=== PATIENT | female | born 1995 | race Caucasian/White ===

== ENCOUNTER 2022-01-12 00:55 | Emergency (ER) | payer MEDICAID, SELFPAY ==
[2022-01-12 00:56] VITALS: BP 117/79; PULSE 95; RESP 18; TEMP 36.4; O2SAT 99; BMI 41.8
[2022-01-12 01:39] VITALS: BP 104/70; BP 107/77; BP 99/63; PULSE 73; PULSE 90; PULSE 97
[2022-01-12 01:40] LABS: Absolute Lymphocyte Count 1.37 X10^3/uL (0.83-4.51); Absolute Neutrophil Count 3.8 X10^3/uL (2.0-7.7); Basophil# 0.01 X10^3/uL; Basophil% 0.2 % (0-1); Eosinophil# 0.03 X10^3/uL; Eosinophils% 0.5 % (0-5); Hematocrit 37.2 % (37-47); Hemoglobin 12.1 g/dL (12.0-15.0); Lymphocyte # 1.37 X10^3/ul (0.83-4.51); Lymphocyte % 23.5 % (19-41); Mean Corp Hgb Conc 32.5 g/dL (32-36); Mean Corpuscular Hgb 30.3 pg (27.0-32.0); Mean Platelet Vol. 10.4 fl (6.2-12.0); Monocyte# 0.58 X10^3/uL; Monocyte% 9.9 % (0-10); NRBC Flagged by Analyzer 0 % (0-5); Neutrophil # 3.83 X10^3/uL (2.7-7.7); Neutrophil % 65.7 % (47-70); Platelet Count 235 K/mm3 (150-450); RBC Distribution Width CV 15.3 % (11.6-14.6); RBC Distribution Width SD 52.9 fl (35.1-43.9); White Blood Count 5.8 K/mm3 (4.4-11.0)
[2022-01-12 01:49] LABS: International Normalized Ratio 1.2; Prothrombin Time (Protime)PT. 14.4 SECONDS (11.7-14.9)
--- NOTE | 2022-01-12 02:21 | EX.ED.DYSGE1 ---
HPI History of Present Illness Chief Complaint: Nosebleed Narrative Narrative: Patient is a 26-year-old female with past medical history of depression. She states she was at work this evening when she noticed she was having intermittent bleeding from the right and left nostril. She denies any direct trauma prior to the bleeding starting and she denies any history of bleeding disorder or blood thinner use. She states during the last episode of bleeding she felt lightheaded and dizzy as though she was going to pass out and secondary to this she was advised to come to the hospital for evaluation. [facility] Medical History Seizure Home Medications escitalopram oxalate 10 mg tablet 1 tab PO DAILY 01/12/22 [History Last Taken Unknown] Allergy/AdvReac Type Severity Reaction Status Date / Time amoxicillin Allergy Anaphylaxis Verified 01/12/22 00:59 Penicillins Allergy Anaphylaxis Verified 01/12/22 00:59 shrimp Allergy Anaphylaxis Verified 01/12/22 00:59 Social History Smoking Status: Never smoker [facility] ED Constitutional Constitutional ED: Reports sweats; Denies chills or fever(s) ENT ENT ED: Reports other Details: Positive nosebleed ; Denies sore throat Cardiovascular Cardiovascular: Denies chest pain Respiratory/Chest Respiratory/Chest: Denies cough or dyspnea Gastrointestinal Gastrointestinal: Denies abdominal pain, diarrhea, nausea or vomiting Genitourinary Genitourinary ED: Denies dysuria Musculoskeletal Musculoskeletal: Denies myalgias Integumentary Denies rash Neurologic Neurologic: Reports other Details: Positive dizziness ; Denies headache(s) Hematologic/Lymphatic Hematologic/Lymphatic: Denies easy bleeding or easy bruising EXAM Physical Exam Const Vital Signs: 01/12/22 00:56 01/12/22 01:39 Temperature 97.6 F L Temperature Source Temporal Pulse Rate 95 Pulse Rate [Lying] 73 Pulse Rate [Sitting (for 1 minute prior to obtaining)] 90 Pulse Rate [Standing (for 1 minute prior to obtaining)] 97 Respiratory Rate 18 Blood Pressure 117/79 Blood Pressure [Lying] 99/63 Blood Pressure [Sitting (for 1 minute prior to obtaining)] 104/70 Blood Pressure [Standing (for 1 minute prior to obtaining)] 107/77 Blood Pressure Mean 91 Blood Pressure Mean [Lying] 75 Blood Pressure Mean [Sitting (for 1 minute prior to obtaining)] 81 Blood Pressure Mean [Standing (for 1 minute prior to obtaining)] 87 Pulse Ox 99 Oxygen Delivery Method Room Air Positive well nourished and well developed General Appearance ED: well developed HEENT Reports moist mucous membranes HEENT Narrative: Patient has a friable nasal septum greater on the right. There is scabbing present bilaterally consistent with intermittent bleeds but no active bleed. No dried blood or active bleeding noted in the posterior pharynx Eyes PERRL and EOMs intact bilaterally Eyes Narrative: No subconjunctival pallor noted Neck supple Resp normal respiratory effort and clear to auscultation bilaterally Cardio regular rate and regular rhythm Extremity normal to inspection Neuro oriented x3 and CN's II-XII intact bilaterally Sensorium / Orientation: alert Psych mental status grossly normal Skin no rashes or lesions noted MDM MDM MDM Narrative Medical decision making narrative: Patient presented to the ER with stable vitals and an exam that demonstrated spontaneous resolution of her nosebleed. We discussed that with stable vitals but chance for having a low blood volume is unlikely the patient had concerned about this because of her near syncopal event and therefore basic labs were ordered. H&H is stable bleeding times are normal and her orthostatic vital signs are negative. Her history of a near syncopal event while having a nosebleed is most consistent with a vasovagal reaction. At this time she continues to have no spontaneous bleeding her vitals remained stable and with negative work-up she is safe for discharge Lab Data Attestation: I reviewed the patient's lab results. Labs: Laboratory Results - last 24 hr 01/12/22 01/12/22 01:35 01:35 WBC 5.8 RBC 4.00 L Hgb 12.1 Hct 37.2 MCV 93.0 MCH 30.3 MCHC 32.5 RDW Std Deviation 52.9 H RDW Coeff of [place] 15.3 H Plt Count 235 MPV 10.4 Immature Gran % (Auto) 0.200 Neut % (Auto) 65.7 Lymph % (Auto) 23.5 [place] % (Auto) 9.9 Eos % (Auto) 0.5 Baso % (Auto) 0.2 Absolute Neuts (auto) 3.8 Absolute Lymphs (auto) 1.37 Nucleated RBC % 0 PT 14.4 INR 1.2 APTT 36.0 Discharge Plan Triage Chief Complaint: Nosebleed ED Provider: Asif Johnson Dx/Rx/DC Orders Clinical Impression: Anterior epistaxis Instructions: ED Epistaxis (Adult) Prescriptions: No Action escitalopram oxalate 10 mg tablet 1 tab PO DAILY Primary Care Provider: Sánchez Ferris Referrals: Sánchez Ferris MD [Primary Care Provider] - Disposition Disposition: Home, Self Care Discharge Date/Time: 01/12/22 02:42
== END 2022-01-12 02:42 | disposition home or self-care (01) ==
PROVIDERS: Emergency Provider Emergency Medicine; PCP Family Medicine; Visit Provider Emergency Medicine
DX: R04.0 Epistaxis (principal)
CPT/HCPCS: 85025; 85610; 85730; 99283

== ENCOUNTER 2024-09-11 17:10 | Emergency (ER) | payer SELFPAY ==
[2024-09-11 17:11] VITALS: BP 139/100; PULSE 87; RESP 20; TEMP 36.6; O2SAT 97; BMI 47.0
--- NOTE | 2024-09-11 17:31 | ED.VIS.FEGU ---
HPI HPI - Female History of Present Illness Chief Complaint: Female C/O Pain Pain: Positive for Pelvic Pain Onset: Today Context: Gradual Onset Timing: Continuous Quality: Positive for Sharp and - (Pressure) Location: LLQ Worsened by: - (Nothing) Relieved by: - (Nothing) Associated Symptoms Associated Symptoms: Positive for Frequency; Negative for Dysuria or Hematuria Narrative Narrative: Patient presents with left lower abdominal pain that radiates into her pelvis and vaginal area. Patient states this began today. Patient states she has had some intermittent discomfort over the past few weeks. Patient states her pain is worse today. Patient admits to some nausea but denies any vomiting. Patient states she feels dizzy and disoriented. Patient states nothing makes her symptoms better and nothing makes it worse. Patient denies any abnormal vaginal bleeding or discharge. Patient denies any fevers but admits to some subjective chills. Patient admits to some urinary frequency but denies any dysuria or hematuria. PFSH PFS Medical History Seizure Home Medications ?Medication ?Instructions ?Recorded ?Last Taken ?Type escitalopram oxalate 10 mg tablet 1 tab PO DAILY 01/12/22 Unknown History Allergy/AdvReac Type Severity Reaction Status Date / Time amoxicillin Allergy Anaphylaxis Verified 09/11/24 17:11 Penicillins Allergy Anaphylaxis Verified 09/11/24 17:11 shrimp Allergy Anaphylaxis Verified 09/11/24 17:11 Surgical History no surgical history no surgical history Social History Smoking Status: Never smoker ROS ROS ED Constitutional Constitutional ED: Reports chills and subjective; Denies fever(s) Eyes Eyes: Denies blurry vision or change in vision ENT ENT ED: Denies rhinorrhea or sore throat Cardiovascular Cardiovascular: Denies chest pain or palpitations Respiratory/Chest Respiratory/Chest: Denies cough or dyspnea Gastrointestinal Gastrointestinal: Reports nausea; Denies vomiting Genitourinary Genitourinary ED: Reports urinary frequency; Denies dysuria or hematuria Musculoskeletal Musculoskeletal: Reports back pain and neck pain Integumentary Denies abscess or rash Neurologic Neurologic: Reports headache(s); Denies weakness Allergic/Immunologic Allergic/Immunologic ED: Denies mouth swelling or urticaria EXAM Physical Exam Const Vital Signs: 09/11/24 17:11 09/11/24 19:10 Temperature 97.9 F Temperature Source Temporal Pulse Rate 87 81 Respiratory Rate 20 H 14 Blood Pressure 139/100 H Blood Pressure Mean 113 Pulse Ox 97 97 Oxygen Delivery Method Room Air Room Air Positive well nourished and well developed Constitutional Narrative: BMI is 47.0 General Appearance ED: well developed and NAD HEENT Reports moist mucous membranes Neck supple and no JVD Resp normal respiratory effort and clear to auscultation bilaterally Cardio regular rate and regular rhythm GI soft to palpation and non-distended Palpation: tender LLQ; Negative for guarding Neuro oriented x3, CN's II-XII intact bilaterally and no sensory deficits noted Sensorium / Orientation: alert Motor Exam: strength 5/5 throughout Psych mental status grossly normal MDM MDM MDM Narrative Medical decision making narrative: Differential diagnosis includes urinary tract infection, ureteral calculus, ovarian cyst, diverticulitis, pyelonephritis, ectopic , and electrolyte abnormality. CT scan of the abdomen and pelvis will be obtained to assess for ureteral calculus, ovarian cyst, and diverticulitis. CBC will be obtained to assess for leukocytosis or anemia. Basic metabolic profile will be obtained to assess for electrolyte abnormality and renal function. Urinalysis will be obtained to assess for urinary tract infection and hematuria. Serum hCG will be obtained to assess for . Lab Data Attestation: I reviewed the patient's lab results. Lab results narrative: CBC was reviewed and was within normal limits. Basic metabolic profile was reviewed and was within normal limits. Serum hCG was reviewed and was negative. Urinalysis was reviewed. There is no evidence of urinary tract infection or hematuria. Labs: Laboratory Results - last 24 hr 09/11/24 09/11/24 17:50 19:16 WBC 8.4 RBC 3.99 L Hgb 12.7 Hct 37.7 MCV 94.5 MCH 31.8 MCHC 33.7 RDW Std Deviation 49.4 H RDW Coeff of [place] 14.4 Plt Count 320 MPV 9.9 Immature Gran % (Auto) 0.500 Neut % (Auto) 66.4 Lymph % (Auto) 26.0 [place] % (Auto) 6.2 Eos % (Auto) 0.7 Baso % (Auto) 0.2 Absolute Neuts (auto) 5.6 Absolute Lymphs (auto) 2.17 Nucleated RBC % 0 Sodium 135 Potassium 3.9 Chloride 100 Carbon Dioxide 21.3 Anion Gap 14 BUN 7 Creatinine 0.82 Estim Creat Clear Calc 121.47 Est GFR (MDRD) Non-Af 99 BUN/Creatinine Ratio 8.2 L Glucose 106 H Calcium 9.0 Serum , Qual NEGATIVE Urine Color Yellow Urine Clarity Clear Urine pH 6.5 Ur Specific [place] 1.010 Urine Protein Negative Urine Glucose (UA) Normal Urine Ketones Negative Urine Occult Blood 10 H Urine Nitrite Negative Urine Bilirubin Negative Urine Urobilinogen Normal Ur Leukocyte Esterase Negative Urine RBC 0-5 SEEN Urine WBC 0-5 SEEN Ur Squamous Epith Cells 0-5 SEEN Urine Bacteria 1+ Urine Mucus 0 SEEN Radiography Diagnostic Testing: Clinical Impression(s) from Imaging Studies Abdomen/Pelvis CT 09/11/24 18:31 IMPRESSION: NORMAL CT ABDOMEN AND PELVIS WITH CONTRAST. Reading Location: [facility] CT scan of the abdomen and pelvis was obtained. There is no acute abnormality noted. There is no free air or free fluid. There is no evidence of bowel obstruction or perforation. There is no diverticulitis noted. This was interpreted by the radiologist and was also independently reviewed by myself. Treatment and Re-Evaluation Narrative: Patient was given IV fluids and Zofran. Patient was feeling better on reevaluation. Patient was advised of her findings. Patient was instructed to follow-up with her primary care physician in 5 to 7 days for further evaluation. Patient understood and was agreeable with the plan. All questions were answered. Discharge Plan Triage Chief Complaint: Female C/O ED Provider: Aldo Rincon Dx/Rx/DC Orders Clinical Impression: Abdominal pain in female patient, Body mass index (BMI) of 40.0 to 49.9 Instructions: ED Abdominal Pain Unkn Cause Fem Prescriptions: No Action escitalopram oxalate 10 mg tablet 1 tab PO DAILY Primary Care Provider: Sánchez Ferris Referrals: Sánchez Ferris MD [Primary Care Provider] - 5-7 Days Print Language: Divehi Disposition Disposition: Home, Self Care
[2024-09-11] MEDS: 0.9% Normal Saline (1000mL) 1,000 ML 1000 ML IV (17:48)
[2024-09-11] MEDS: Ondansetron 4 MG/2 ML Vial IV (17:49)
[2024-09-11 18:00] LABS: Absolute Lymphocyte Count 2.17 X10^3/uL (0.83-4.51); Absolute Neutrophil Count 5.6 X10^3/uL (2.0-7.7); Basophil# 0.02 X10^3/uL; Basophil% 0.2 % (0-1); Eosinophil# 0.06 X10^3/uL; Eosinophils% 0.7 % (0-5); Hematocrit 37.7 % (37-47); Hemoglobin 12.7 g/dL (12.0-15.0); Lymphocyte # 2.17 X10^3/ul (0.83-4.51); Mean Corp Hgb Conc 33.7 g/dL (32-36); Mean Corpuscular Hgb 31.8 pg (27.0-32.0); Mean Corpuscular Volume 94.5 fL (81-99); Mean Platelet Vol. 9.9 fl (6.2-12.0); Monocyte# 0.52 X10^3/uL; Monocyte% 6.2 % (0-10); NRBC Flagged by Analyzer 0 % (0-5); Neutrophil # 5.55 X10^3/uL (2.7-7.7); Neutrophil % 66.4 % (47-70); Platelet Count 320 K/mm3 (150-450); RBC Distribution Width CV 14.4 % (11.6-14.6); RBC Distribution Width SD 49.4 fl (35.1-43.9); Red Blood Count 3.99 M/mm3 (4.2-5.4); White Blood Count 8.4 K/mm3 (4.4-11.0)
[2024-09-11 18:15] LABS: Internal QC Validated? YES +Cl - CLEAR BKGD; Pregnancy, Serum, hCG Quali. NEGATIVE Negative
[2024-09-11 18:22] LABS: Anion Gap 14 (5-15); BUN 7 mg/dL (4-19); BUN/Creat Ratio 8.2 RATIO (10-20); Carbon Dioxide 21.3 mmol/L (21.0-32.0); Chloride 100 mmol/L (98-108); Creatinine, Serum 0.82 mg/dL (0.70-1.20); EST Glomerular Filtration Rate 99 (>60); Estimated Creatinine Clearance 121.47 ml/min (50-250); Glucose 106 mg/dL (70-99); Potassium 3.9 mmol/L (3.3-5.1); Sodium Level 135 mmol/L (133-145)
--- NOTE | 2024-09-11 18:31 | CT_ITS ---
PROCEDURE: ABDOMEN/PELVIS W IV CONT ONLY 09/11/2024 REASON FOR EXAM: PELVIC PAIN TECHNIQUE: Abdomen CT without and with intravenous contrast. Coronal and Sagittal reconstruction series were provided. PATIENT PREPARATION: Per protocol ORAL CONTRAST TYPE: None. AMOUNT: mL CONTRAST: 90 cc of Isovue-300. One or more dose reduction techniques were used (e.g., Automated exposure control, adjustment of the mA and/or kV according to patient size, use of iterative reconstruction technique. RADIATION DOSE SUMMARY: CTDlvol: 30 mGy DLP: 1330 mGycm COMPARISON: None FINDINGS: Lung bases: Lung bases are clear. Liver: Normal size. No mass. Gallbladder: Unremarkable Spleen: Normal size. Pancreas: Normal size without evidence of mass surrounding inflammation or ductal dilation. Adrenals: Unremarkable Kidneys: Normal renal sizes. No hydronephrosis. Bladder: Unremarkable Reproductive Organs: Normal uterine size and contour. Ovaries are unremarkable. Bowel: Evaluation of the bowel loops are limited due to lack of oral contrast. Stomach is grossly unremarkable. No inflammatory changes of the small or large bowel. Appendix: Unremarkable Lymph nodes: Unremarkable. Vasculature: The abdominal aorta and IVC are normal. Peritoneum / Retroperitoneum: No evidence of free air free fluid. Bones: Unremarkable CT/Abdomen/Pelvis W IV Cont ONLY IMPRESSION: NORMAL CT ABDOMEN AND PELVIS WITH CONTRAST. [facility]
[2024-09-11 19:10] VITALS: PULSE 81; RESP 14; O2SAT 97
[2024-09-11 19:23] LABS: Mucous, Urine 0 SEEN /hpf (<or=2+)
[2024-09-11 19:28] LABS: Color, Urine Yellow (Yellow); Glucose, Dipstick Normal (Normal); Ketone-Dipstick Negative (Negative); Leukocyte Esterase-Dipstick Negative /ul (Negative); Nitrite-Dipstick Negative (Negative); Occult Blood-Urine 10 /ul (Negative); Protein-Dipstick Negative (Negative); Urine Bilirubin Dipstick Negative (Negative); Urine Clarity Clear (Clear); Urine Urobilinogen Normal (Normal); Urine pH 6.5 (5.0 - 8.0)
[2024-09-11 19:55] LABS: Bacteria 1+ /hpf (None Seen); Red Blood Cells-Urine 0-5 SEEN /hpf (0-5); Squamous Epithelial Cells - UA 0-5 SEEN /hpf (5-10)
[2024-09-11 19:56] LABS: White Blood Cells 0-5 SEEN /hpf (0-5)
== END 2024-09-11 20:36 | disposition home or self-care (01) ==
PROVIDERS: Emergency Provider Emergency Medicine; PCP Family Medicine; Visit Provider Emergency Medicine
DX: R10.32 Left lower quadrant pain (principal); R35.0 Frequency of micturition; R11.0 Nausea; R51.9 Headache, unspecified; M54.2 Cervicalgia
CPT/HCPCS: 74177; 80048; 81001; 84703; 85025; 96361; 96374; 99283; Q9967; A4216; J2405